=== PATIENT | female | born 1990 | race Caucasian/White ===

== ENCOUNTER → 2021-03-08 | Outpatient (CLI) | payer BC, OTHER | LOC: SJCVCIMAG 09:52 | PROVIDERS: ATTEND Internal Medicine Cardiovascular Disease | DX: I49.9 Cardiac arrhythmia, unspecified (principal); R55 Syncope and collapse; R06.00 Dyspnea, unspecified; I47.1 Supraventricular tachycardia; Z79.899 Other long term (current) drug therapy ==

== ENCOUNTER → 2021-04-20 | Outpatient (CLI) | payer BC, OTHER ==
[~2021-04-20] VITALS: Ht 170.2 cm; Wt 74.0 kg
[~2021-04-20] MED LIST: APRI1 EACH PO
[2021-04-20 08:37] LABS: HEMATOCRIT 40.3 % (37.0-47.0); HEMOGLOBIN 13.9 gm/dL (12.0-15.0); MCH 32.4 pg (26.0-34.0); MCHC 34.5 g/dL (28.0-37.0); MCV 93.8 fL (80.0-100.0); RBC 4.3 mil/uL (4.20-5.00); WBC 5.9 thou/uL (4.0-11.0)
[2021-04-20 08:46] LABS: CALCIUM 9.4 mg/dL (8.5-10.1); CREATININE 0.9 mg/dL (0.6-1.0); POTASSIUM 4.9 mmol/L (3.5-5.1)
[2021-04-20 08:52] LABS: APTT 21.7 Seconds (24.5-32.8); INR 0.9; PROTIME 9.6 Seconds (9.3-11.4)
[2021-04-20 08:54] VITALS: BP 130/82
--- NOTE | 2021-04-20 09:58 | EKG ---
[address] [address] ELECTROCARDIOGRAM REPORT Name: NANCY ACKERMAN Room #: [facility]#: [id number] Admission: 04/20/21 Attend Phys: Jason Pitts MD Discharge: Date of : [birth year] Report #: [id number] [facility] Test Date: 2021-04-20 Test Time: 08:39:24 Pat Name: NANCY ACKERMAN Department: Room: Gender: F [employer]metic Sales Consultant: [facility] : 1990 Requested By: Jason Pitts Order Number: [id number] MD: Rajesh Lizama Measurements Intervals [place] Rate: 69 P: -15 OR: 153 QRS: 72 QRSD: 96 T: 16 QT: 411 QTc: 441 Interpretive Statements Sinus rhythm RSR' in V1 or V2, right VCD or RVH No previous ECG available for comparison Electronically Signed On 04-20-2021 9:57:58 CDT by Rajesh Lizama [email or web address] <ELECTRONICALLY SIGNED> By: Rajesh Lizama MD, [facility] 04/20/21 0957 D: [id number] Rajesh Lizama MD, FAC /EPI
--- NOTE | 2021-04-21 13:27 | P ---
[facility] [place] [address] PROCEDURE REPORT Name: NANCY ACKERMAN Room #: [facility]#: [id number] Admission: 04/20/21 Attend Phys: Jason Pitts MD Discharge: Date of : [birth year] Report #: [id number] THIS REPORT FOR: cc: Latisha Hinton DNP, Mary E. DNP Couchonnal, Luis F. MD ~ DOC #: [id number] Jason Pitts MD DATE OF SERVICE: 04/20/2021 EP STUDY PREOPERATIVE DIAGNOSIS: Supraventricular tachycardia. POSTOPERATIVE DIAGNOSIS: Atrial tachycardia. 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 She has had echo showing structurally normal heart. She is here for EP study and possible ablation. PROCEDURE PERFORMED: 1. Comprehensive EP study, CPT code 69704. 2. EP with left atrial pacing recording, CPT code 55271. 3. Program stimulation pacing after IV drug infusion, CPT code 37664. 4. The 3D mapping, CPT code 12406. ANESTHESIA: The patient underwent MAC anesthesia with no anesthesia related complications. DESCRIPTION OF PROCEDURE: The patient underwent informed consent. We discussed the details of the procedure including the risks, which include but not limited to bleeding, vascular damage, stroke, MD as well as cardiac perforation and damage to the [place] conduction system requiring permanent pacemaker. She understood these risks and is willing to proceed. The patient was brought to the EP laboratory in a fasting and sedated state, prepped and draped in a standard sterile fashion. Next, I obtained access to the bilateral femoral veins placing an 8 and 6-Burkinan short sheath in the right femoral vein and a 6 and 7-Burkinan short sheath in left femoral vein using the modified Seldinger technique. Next, under fluoroscopy, 3 quadripolar catheters were placed in the HRA, His and RV positions and a decapolar catheter was placed in the coronary sinus. Next, a basic EP study was performed. At baseline, the patient was in sinus rhythm, sinus cycle length of 850 milliseconds, VA 170 milliseconds, QRS duration 97 milliseconds, QT interval 380 milliseconds, AH interval 90 milliseconds, HV interval 40 milliseconds. Next, atrial burst pacing was performed and AV block was noted at 330 milliseconds. AV diane ERP [facility] [address] [place] [address] PROCEDURE REPORT Name: KRISTANRANJEETNANCY Room #: REG [facility].#: [id number] Admission: 04/20/21 Attend Phys: Jason Pitts MD Discharge: Date of : [birth year] Report #: [id number] was noted at 340 milliseconds at a [address] cycle length. Ventricular pacing was performed and VA block was noted at 600 milliseconds and VA conduction was both midline and decremental with single ventricular extrastimuli. No SVT was inducible. There was no evidence of AH jump and there is no evidence of accessory pathway. Isoproterenol was started at 2 mcg per minute and she had a robust response to this. AV block was noted to be at around 220 milliseconds. VA block was noted at 260 milliseconds and ventricular ERP was noted at 190 milliseconds at a [address] cycle length. Next, I continued to perform aggressive atrial burst pacing and I performed a single and double atrial extrastimuli. No inducible SVT was noted. After about 20-30 minutes of testing, the patient started having spontaneous episodes of atrial tachycardia. These were irregular, cycle length varying anywhere from 150-190 milliseconds and there was no consistent atrial activation pattern. Unfortunately, these would only last for about 5-20 beats in duration and then terminated on their own. I continued trying to see if I could induce something that would sustained and unfortunately everything was spontaneous bursts of atrial tachycardia. I did lower the isoproterenol down to 1 mcg per minute, tested here, and again could not induce anything sustainable. I did attempt to map this atrial tachycardia. I did open up a PentaRay and I created a 3D geometry of the right atrium, hoping that potentially I would find something in the right atrium to ablate, but again these episodes were all nonsustained, and I was not able to map anything consistently. As such, the isoproterenol was turned off. I continued testing and we had no more episodes of the atrial tachycardia once off isoproterenol. I did look at the episodes on her diesel technician and they did appear to be slightly irregular, so I do think that she likely does have an atrial tachycardia and this is not nonspecific finding due to the Isuprel. As such, the procedure was concluded. She was in sinus rhythm, sinus cycle length of 600 milliseconds, VA interval 180 milliseconds, QRS duration 81 milliseconds, QT interval 351 milliseconds. As such, catheters and sheaths were pulled. Hemostasis was obtained. The patient awoke neurologically and hemodynamically intact with no complication. CONCLUSION: 1. Evidence of a nonsustained atrial tachycardia, possibly arising from one of the pulmonary veins. 2. Normal SA diane function. 3. Normal AV diane function. 4. Normal His-Purkinje function. 5. No evidence of a slow pathway or accessory pathway mediated tachycardias. RECOMMENDATIONS: 1. We will have her go on Xarelto for 1 week to prevent DVT given that she is on control. [facility] [address] [place] [address] PROCEDURE REPORT Name: NANCY ACKERMAN Room #: [facility]#: [id number] Admission: 04/20/21 Attend Phys: Jason Pitts MD Discharge: Date of : 89 Report #: [id number] 2. We will initiate flecainide 50 mg b.i.d. and Toprol 25 mg daily for a period of 3 months. We briefly discussed the possibility of considering AFib ablation in the future with isolation of the pulmonary veins to hopefully eliminate this atrial tachycardia that she is currently experiencing. MD GEORGIE Prather/CLARIBEL <ELECTRONICALLY SIGNED> By: Jason Pitts MD 04/21/21 1327 [id number] Jason Pitts MD /nt
== END | disposition home or self-care (01) ==
LOC: CATH 06:17
PROVIDERS: ATTEND Internal Medicine Cardiovascular Disease
DX: I47.1 Supraventricular tachycardia (principal); R00.2 Palpitations; Z98.890 Other specified postprocedural states; Z79.899 Other long term (current) drug therapy; Z88.2 Allergy status to sulfonamides
CPT/HCPCS: 62110; 62900; 70005

== ENCOUNTER → 2021-04-26 | Outpatient (CLI) | payer BC, OTHER | LOC: SJCVCIMAG 06:35 | PROVIDERS: ATTEND Internal Medicine Cardiovascular Disease | DX: R07.89 Other chest pain (principal) ==